=== PATIENT | female | born 1995 | race African-American/Black ===

== ENCOUNTER 2018-05-18 13:27 | Emergency (ER) | payer MEDICARE, MEDICAID ==
[~2018-05-18] VITALS: Ht 149.9 cm; Wt 49.9 kg
[2018-05-18] MEDS ORDERED: ALBUTEROL (0.083%) 2.5MG/3ML NEB HHN STA (14:42)
[2018-05-18] MEDS ORDERED: SODIUM CHLORIDE 0.9% 1,000 ML IV ONE (14:42)
[2018-05-18] MEDS ORDERED: IPRATROPIUM BROMIDE (0.02%) 0.5MG/2.5ML NEB HHN STA (14:42)
[2018-05-18] MEDS ORDERED: METHYLPREDNISOLONE SOD SUCC 125 MG/2 ML VIAL IV ONE (15:00)
[2018-05-18 15:54] LABS: BASOPHILS % 0.3 % (0.0-2.0); EOSINOPHILS % 4.2 % (0.0-5.0); HEMATOCRIT. 24.2 % (36.0-48.0); HEMOGLOBIN. 7.9 g/dL (12.0-16.0); LYMPHOCYTES % 12.8 % (20.0-50.0); MEAN CORPUSCULAR HEMOGLOBIN 25.8 pg (28.0-32.0); MEAN PLATELET VOLUME 6.4 fl (7.4-10.4); NEUTROPHILS % 71.7 % (40.0-76.0); PLATELET 356 x1000/uL (130-400); RED BLOOD CELL COUNT 3.06 mill/uL (4.2-5.4); RED CELL DISTRIBUTION WIDTH 14.3 % (11.6-14.6)
[2018-05-18 15:55] LABS: CHLORIDE 107 mEq/L (98-107)
[2018-05-18] MEDS ORDERED: ALBUTEROL (0.5%) 2.5MG/0.5ML NEB HHN ONE (16:30)
[2018-05-18] MEDS ORDERED: IPRATROPIUM BROMIDE (0.02%) 0.5MG/2.5ML NEB HHN ONE (16:30)
[2018-05-18 19:03] VITALS: BP 110/61
== END 2018-05-18 19:05 | disposition home or self-care (01) ==
LOC: ER 13:27
DX: O99.512 Diseases of the respiratory system complicating pregnancy, second trimester (principal); O99.012 Anemia complicating pregnancy, second trimester; Z3A.26 26 weeks gestation of pregnancy
CPT/HCPCS: 36415; 80053; 85025; 87804; 94640; 96374; 99284; J2930; J7030; J7611